=== PATIENT | female | born 1975 | race African-American/Black ===

== ENCOUNTER 2016-07-09 08:02 | Emergency (ER) | payer OTHER ==
[2016-07-09 08:11] VITALS: BMI 20.7
--- NOTE | 2016-07-09 08:26 | PDOC ---
History of Present Illness - General History Source: Patient Exam Limitations: No Limitations - History of Present Illness Initial Comments: CHIEF COMPLAINT: 40 y/o [id number] with known uterine fibroids and IUD c/o abnormal vaginal bleeding for the past 2 days. HISTORY OF PRESENT ILLNESS: The patient states her LMP was 06/21/16 and are normally every 28 days. She states 2 days ago she started having vaginal bleeding that she feels is not normal menstrual bleeding. She does also have some lower abdominal cramping. She has had to change her pad twice a day. She denies f/c, n/v/d, CP, SOB, back pain, hematuria, dysuria. She recently moved here and does not have an PARTS REPRESENTATIVE. Vital signs on arrival are within normal limits. REVIEW OF SYSTEMS: GENERAL/CONSTITUTIONAL: No fever/chills. No weakness. No weight change. HEAD, EYES, EARS, NOSE AND THROAT: No change in vision. No ear pain or discharge. No sore throat. CARDIOVASCULAR: No chest pain or shortness of breath. RESPIRATORY: No cough, wheezing, or hemoptysis. GASTROINTESTINAL: +lower abdominal pain. No nausea, vomiting, diarrhea, constipation. GENITOURINARY: No dysuria, frequency, or change in urination. +vaginal bleeding MUSCULOSKELETAL: No joint or muscle swelling or pain. No neck or back pain. SKIN: No rash or easy bruising. NEUROLOGIC: No headache, vertigo, loss of consciousness, or loss of sensation. PHYSICAL EXAM: GENERAL: The patient is awake, alert, and fully oriented, in no acute distress. She is very well appearing, ambulatory, in NAD or obvious discomfort. HEAD: Normal with no signs of trauma. ENT: Pupils equal, round and reactive to light, extraocular movements intact, sclera anicteric, conjunctiva clear. Neck supple. LUNGS: Clear to auscultation bilaterally. Normal excursion. No respiratory distress or use of accessory muscles. CV: RRR, S1/S2, no MRG. Cap refill < 2 sec. ABDOMEN: Soft, non-distended, non-tender even to deep palpation, no hepatomegaly or splenomegaly, no masses. VAGINAL: Copious red blood with large clot in the vaginal canal. Cervix cannot be visualized secondary to blood. Manual exam reveals minimal CMT. No adenexal tenderness b/l. EXTREMITIES: Normal range of motion, no edema. NEUROLOGICAL: Normal speech, normal gait. CN II-XII grossly intact. PSYCH: Normal mood, normal affect. SKIN: Warm, dry, normal turgor, no rashes or lesions noted. <Jerrica Wright - Last Filed: 07/09/16 10:36> <Bernarda Mcnair - Last Filed: 07/10/16 15:39> - General Chief Complaint: Vaginal Bleeding Stated Complaint: VAGINAL BLEEDING Time Seen by Provider: 07/09/16 08:24 Past History - Past Medical History Asthma: Yes - Psycho/Social/Smoking Cessation Hx Anxiety: No Suicidal Ideation: No Smoking History: Never smoked Hx Alcohol Use: Yes (occasionally) Drug/Substance Use Hx: No <Jerrica Wright - Last Filed: 07/09/16 10:36> <Bernarda Mcnair - Last Filed: 07/10/16 15:39> - Past Medical History Allergies/Adverse Reactions: Allergies Allergy/AdvReac Type Severity Reaction Status Date / Time No Known Allergies Allergy Verified 07/09/16 08:11 Home Medications: Ambulatory Orders NK [No Known Home Medication] 07/09/16 *Physical Exam - Vital Signs Last Vital Signs Temp Pulse Resp BP Pulse Ox 97.7 F 63 16 114/68 100 07/09/16 08:09 07/09/16 08:09 07/09/16 08:09 07/09/16 08:09 07/09/16 08:09 <Jerrica Wright - Last Filed: 07/09/16 10:36> - Vital Signs Last Vital Signs Temp Pulse Resp BP Pulse Ox 98 F 64 16 109/71 100 07/09/16 10:53 07/09/16 10:53 07/09/16 10:53 07/09/16 10:53 07/09/16 10:53 <Bernarda Mcnair - Last Filed: 07/10/16 15:39> ED Treatment Course - LABORATORY CBC & Chemistry Diagram: 07/09/16 09:10 07/09/16 09:10 <Jerrica Wright - Last Filed: 07/09/16 10:36> - LABORATORY CBC & Chemistry Diagram: 07/09/16 09:10 07/09/16 09:10 - ADDITIONAL ORDERS Additional order review: 07/09/16 08:42 Urine Culture - Final Urine - Urine Clean Catch NO GROWTH OBTAINED 07/09/16 09:10 RBC 3.83 MCV 90.2 MCHC 33.9 RDW 13.5 MPV 8.4 Neutrophils % 47.7 Lymphocytes % 33.1 Monocytes % 13.0 H Eosinophils % 4.9 H Basophils % 1.3 <Bernarda Mcnair - Last Filed: 07/10/16 15:39> Medical Decision Making - Medical Decision Making A/P: 40 y/o female with abnormal vaginal bleeding. Plan is as follows: 1. UA/culture/hcg 2. Labs 3. Transvaginal Ultrasound Transvaginal Ultrasound IMPRESSION: IUD and small uterine fibroids. Free pelvic fluids. Labs unremarkable. UA unremarkable. Patient given results. Suggested this may either be her normal menstrual period just early or bleeding fibroids. Suggested she f/u with Dr. Florence as soon as possible for follow up and return to the ER with any worsening or concerning symptoms. The patient verbalizes understanding of all instructions, has no further questions and is awaiting discharge. <Jerrica Wright - Last Filed: 07/09/16 10:36> *DC/Admit/Observation/Transfer <Jerrica Wright - Last Filed: 07/09/16 10:36> - Attestations Physician Attestion: I reviewed the case with the mid-level practitioner and agree with the mid- level practitioner's assessment, diagnosis and disposition. <Bernarda Mcnair - Last Filed: 07/10/16 15:39> Diagnosis at time of Disposition: Abnormal vaginal bleeding - Discharge Dispostion Disposition: HOME Condition at time of disposition: Good - Referrals Referrals: David Florence MD [Staff Physician] - 1 week - Patient Instructions Printed Discharge Instructions: DI for Menorrhagia Additional Instructions: Discharge Instructions: -The ultrasound of your uterus showed fibroids and a normally placed IUD -Please follow up with Dr. Florence or an PARTS REPRESENTATIVE of your choice as soon as possible for further work up -Return to the ER with any worsening or concerning symptoms - Post Discharge Activity Work/School Note: Back to Work
[2016-07-09 08:49] LABS: URINE APPEARANCE CLEAR; URINE BILIRUBIN NEGATIVE (NEGATIVE); URINE BLOOD 3+ (NEGATIVE); URINE COLOR LTYELLOW; URINE GLUCOSE (UA) NEGATIVE (NEGATIVE); URINE KETONE NEGATIVE (NEGATIVE); URINE LEUK ESTERASE NEGATIVE (NEGATIVE); URINE NITRITE NEGATIVE (NEGATIVE); URINE PROTEIN NEGATIVE (NEGATIVE); URINE UROBILINOGEN NEGATIVE E.U./dl (0.2-1.0)
[2016-07-09 08:52] LABS: URINE BACTERIA RARE /hpf (NONE SEEN); URINE MUCUS RARE; URINE RBC 2 /hpf (0-3); URINE WBC 2 /hpf (3-5)
[2016-07-09 09:19] LABS: BASOPHIL 1.3 % (0-2.0); EOSINOPHIL 4.9 % (0-4.5); MCH 30.6 pg (25.7-33.7); MCHC 33.9 g/dl (32.0-36.0); MEAN CELL VOLUME 90.2 fl (80-96); MEAN PLT VOLUME 8.4 fl (7.5-11.1); NEUTROPHILS 47.7 % (42.8-82.8); PLATELET COUNT 160 K/MM3 (134-434); RDW 13.5 % (11.6-15.6); WHITE BLOOD COUNT 4.3 K/mm3 (4.0-10.0)
[2016-07-09 09:44] LABS: ALBUMIN 3.7 g/dl (3.4-5.0); ALK PHOS 50 U/L (45-117); ANION GAP 9 (8-16); BILIRUBIN,TOTAL 1.1 mg/dL (0.2-1.0); CALCIUM 8.4 mg/dL (8.5-10.1); CO2 23 mmol/L (21-32); CREATININE 0.6 mg/dL (0.55-1.02); GLUCOSE,RANDOM 83 mg/dL (74-106); SGOT/AST 18 U/L (15-37); SGPT/ALT 24 U/L (12-78); TOT PROT 6.7 g/dl (6.4-8.2)
[2016-07-09 10:56] VITALS: BP 109/71; PULSE 64; TEMP 98
== END 2016-07-09 10:56 | disposition home or self-care (01) ==
LOC: JER 08:02
DX: N93.9 Abnormal uterine and vaginal bleeding, unspecified (principal)
CPT/HCPCS: 36415; 76830-TC; 80053; 81003; 81015; 84703; 85025; 87086; 99283-25

== ENCOUNTER 2016-09-26 08:34 | Emergency (ER) | payer OTHER ==
[2016-09-26 08:38] VITALS: TEMP 98; BMI 20.7
--- NOTE | 2016-09-26 09:11 | PDOC ---
History of Present Illness - General Chief Complaint: Pain Stated Complaint: PALPITATIONS Time Seen by Provider: 09/26/16 09:08 History Source: Patient - History of Present Illness Initial Comments: 09/26/16 11:05 41F with no pmh presents with palpitation on/off since and non- radiating epigastric pain for the past 2 days. The epigastric pain does't seem to be related to prandial state. Patient admits to be under certain amount of stress at work, works as a nurse at [employer]. 09/26/16 11:54 Past History - Past Medical History Allergies/Adverse Reactions: Allergies Allergy/AdvReac Type Severity Reaction Status Date / Time No Known Allergies Allergy Verified 09/26/16 08:34 Home Medications: Ambulatory Orders NK [No Known Home Medication] 07/09/16 Asthma: Yes GI Disorders: Yes (fibroids) - Psycho/Social/Smoking Cessation Hx Anxiety: No Suicidal Ideation: No Smoking History: Never smoked Have you smoked in the past 12 months: No Information on smoking cessation initiated: No Hx Alcohol Use: No Drug/Substance Use Hx: No Substance Use Type: None Review of Systems - Review of Systems Constitutional: No: Symptoms Reported HEENTM: No: Symptoms Reported Respiratory: No: Symptoms reported Cardiac (ROS): Yes: See HPI ABD/GI: Yes: See HPI : No: Symptoms Reported Musculoskeletal: No: Symptoms Reported Integumentary: No: Symptoms Reported All Other Systems: Reviewed and Negative *Physical Exam - Vital Signs Last Vital Signs Temp Pulse Resp BP Pulse Ox 98.0 F 74 18 123/72 100 09/26/16 08:35 09/26/16 08:35 09/26/16 08:35 09/26/16 08:35 09/26/16 08:35 - Physical Exam General Appearance: Yes: Nourished, Appropriately Dressed, Thin. No: Apparent Distress HEENT: positive: EOMI, PRINCESS Neck: positive: Trachea midline. negative: Tender Respiratory/Chest: positive: Lungs Clear, Normal Breath Sounds. negative: Chest Tender, Respiratory Distress Vascular Pulses: Dorsalis-Pedis (R): 2+, Doralis-Pedis (L): 2+ Gastrointestinal/Abdominal: positive: Normal Bowel Sounds, Flat, Soft. negative : Tender, Organomegaly Extremity: positive: Normal Capillary Refill Neurologic: positive: process control programmer II-XII NML intact, Fully Oriented, Alert, Normal Mood/ Affect ED Treatment Course - LABORATORY CBC & Chemistry Diagram: 09/26/16 09:20 09/26/16 09:20 Medical Decision Making - Medical Decision Making 09/26/16 11:54 41F with no pmh presents with palpitation on/off since and non- radiating epigastric pain for the past 2 days. EKG negative, labs, urine negative. Trops negative. Patient to be discharged. 09/26/16 12:16 09/26/16 12:17 09/26/16 12:[address] Flores if palpitations continue. *DC/Admit/Observation/Transfer Diagnosis at time of Disposition: Intermittent palpitations - Discharge Dispostion Disposition: HOME Admit: No - Referrals Referrals: Arsh Flores MD [Staff Physician] - - Patient Instructions Printed Discharge Instructions: DI for Palpitations Additional Instructions: Follow up with Dr. Flores if palpitations continue.
[2016-09-26 09:53] LABS: URINE APPEARANCE SLCLOUDY; URINE BILIRUBIN NEGATIVE (NEGATIVE); URINE BLOOD 3+ (NEGATIVE); URINE COLOR YELLOW; URINE GLUCOSE (UA) NEGATIVE (NEGATIVE); URINE KETONE NEGATIVE (NEGATIVE); URINE LEUK ESTERASE NEGATIVE (NEGATIVE); URINE NITRITE NEGATIVE (NEGATIVE); URINE PROTEIN NEGATIVE (NEGATIVE); URINE UROBILINOGEN NEGATIVE mg/dL (0.2-1.0)
[2016-09-26 10:00] LABS: BASOPHIL 0.9 % (0-2.0); EOSINOPHIL 5.8 % (0-4.5); MCH 30.8 pg (25.7-33.7); MCHC 34.1 g/dl (32.0-36.0); MEAN CELL VOLUME 90.3 fl (80-96); MEAN PLT VOLUME 9.1 fl (7.5-11.1); NEUTROPHILS 45.4 % (42.8-82.8); PLATELET COUNT 201 K/MM3 (134-434); RDW 13.7 % (11.6-15.6); WHITE BLOOD COUNT 4.8 K/mm3 (4.0-10.0)
[2016-09-26 10:02] LABS: URINE MUCUS MODERATE; URINE RBC 202 /hpf (0-3); URINE WBC 15 /hpf (3-5)
[2016-09-26 10:20] LABS: ALBUMIN 4.3 g/dl (3.4-5.0); ANION GAP 7 (8-16); CALCIUM 9.1 mg/dL (8.5-10.1); CO2 27 mmol/L (21-32); CREATININE 0.8 mg/dL (0.55-1.02); GLUCOSE,RANDOM 84 mg/dL (74-106); SGOT/AST 17 U/L (15-37); SGPT/ALT 22 U/L (12-78)
[2016-09-26 10:30] LABS: ALK PHOS 51 U/L (45-117); BILIRUBIN,TOTAL 1.3 mg/dL (0.2-1.0); THYROID STIMULATING HORMONE 1.03 uIU/ml (0.358-3.74); TOT PROT 7.7 g/dl (6.4-8.2)
--- NOTE | 2016-09-26 10:32 | PDOC ---
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 feels under stress recently. no caffeine, no new medications. drinking vinegar. not eating and drinking as much. no f/c no leg swelling. no h/o pe or dvt. no other complaints. no family h/o premature cAD, only brother with h/o rheumatic heart disease. ( valve replacement) - Physicial Exam PE: 09/26/16 11:56 awake alert lungs clear heart rrr no mrg.a bd soft nt nd. leg no edema no calf tenderness. pulses symmetric. nuero alert oriented x 3 - Medical Decision Making 09/26/16 11:57 plan r/o electrolyte abnormality, thyroid abnormality, r/o infection, anemia. if normal consider dc outpt cardiology followup. low risk for heart disease. minimal risk factors. Heart Score/ECG Review #1 General ECG Interpretation: Sinus Rhythm, Normal Rate (62), Normal Intervals, No acute ischemic changes
[2016-09-26 12:05] LABS: CPK 517 IU/L (26-192); TROPONIN I < 0.02 ng/ml (0.00-0.05)
[2016-09-26 13:02] VITALS: BP 122/65; PULSE 68
--- NOTE | 2016-09-26 13:37 | EKG ---
Test Reason : Blood Pressure : / mmHG Vent. Rate : 062 BPM Atrial Rate : 062 BPM P-R Int : 154 ms QRS Dur : 074 ms QT Int : 406 ms P-R-T Axes : 069 048 041 degrees QTc Int : 412 ms NORMAL SINUS RHYTHM NORMAL ECG NO PREVIOUS ECGS AVAILABLE Confirmed by ROSE MARY TRIPLETT MD ([id number]) on 09/26/2016 1:36:39 PM Referred By: Confirmed By:ROSE MARY TRIPLETT MD
== END 2016-09-26 13:03 | disposition home or self-care (01) ==
LOC: JER 08:34
DX: R00.2 Palpitations (principal); Z87.09 Personal history of other diseases of the respiratory system
CPT/HCPCS: 36415; 80053; 81003; 81015; 82553; 84443; 84484; 84703; 85025; 93005; 93010; 99284-25

== ENCOUNTER 2017-12-20 12:58 | Emergency (ER) | payer OTHER ==
[2017-12-20 13:21] VITALS: BP 105/57; PULSE 69; TEMP 98.2; BMI 21.0
--- NOTE | 2017-12-20 15:08 | PDOC ---
History of Present Illness - General Chief Complaint: Pain, Acute Stated Complaint: HEADACHE Time Seen by Provider: 12/20/17 14:59 - History of Present Illness Initial Comments: 12/20/17 15:06 42-year-old female without comorbidities presents for evaluation of atraumatic onset of neck pain 2 weeks. She describes a feeling of crepitation with flexion and extension movements not rotation no radicular symptoms no systemic symptoms Past History - Past Medical History Allergies/Adverse Reactions: Allergies Allergy/AdvReac Type Severity Reaction Status Date / Time No Known Allergies Allergy Verified 09/26/16 08:34 Home Medications: Ambulatory Orders NK [No Known Home Medication] 07/09/16 Asthma: Yes COPD: No GI Disorders: Yes (fibroids) - Suicide/Smoking/Psychosocial Hx Smoking History: Never smoked Have you smoked in the past 12 months: No Hx Alcohol Use: No Drug/Substance Use Hx: No Substance Use Type: None Review of Systems - Review of Systems Musculoskeletal: Yes: Neck Pain *Physical Exam - Vital Signs Last Vital Signs Temp Pulse Resp BP Pulse Ox 98.2 F 69 16 105/57 L 99 12/20/17 13:17 12/20/17 13:17 12/20/17 13:17 12/20/17 13:17 12/20/17 13:17 - Physical Exam Comments: 12/20/17 15:06 HEAD: NC/AT EYES: Conjuntiva clear EOMI PERRL Ears: Canals and TM's normal NOSE: No d/c THROAT: Moist mucous membrances, oral pharanx clear, uvula midline NECK: Supple without adenopathy CARDIAC: S1 S2 LUNGS: CTA Full and Equal breath sounds ABDOMEN: Soft NT ND MS: Full ROM in all joints without edema NEUROLOGIC: No gross sensory or motor deficits, NVID SKIN: Normal color and temperature no lesions or rashes Cervical spine skin color and temperature are normal range of motion is full without crepitation. Is mild left-sided paracervical musculature spasm. No midline tenderness. 5 out of 5 strength in bilateral upper extremities without gross sensorimotor deficits and a negative Spurling maneuver. Medical Decision Making - Medical Decision Making 12/20/17 15:07 Cervical strain, I've offered her Flexeril which she has refused. I will give her follow-up with spine surgery *DC/Admit/Observation/Transfer Diagnosis at time of Disposition: Cervical strain - Discharge Dispostion Disposition: HOME Condition at time of disposition: Stable Decision to Admit order: No - Referrals Referrals: Ishan Bueno MD [Staff Physician] - - Patient Instructions Printed Discharge Instructions: DI for Cervical Muscle Strain Additional Instructions: Return to the emergency room should symptoms worsen or go unresolved. Please follow-up with orthopedic spine surgery for further evaluation and treatment options. - Post Discharge Activity
== END 2017-12-20 15:15 | disposition home or self-care (01) ==
LOC: JERFT 12:58
DX: S16.1XXA Strain of muscle, fascia and tendon at neck level, initial encounter (principal); X58.XXXA Exposure to other specified factors, initial encounter; Y93.89 Activity, other specified; Y92.89 Other specified places as the place of occurrence of the external cause; Y99.8 Other external cause status; Z86.2 Personal history of diseases of the blood and blood-forming organs and certain disorders involving the immune mechanism; Z87.09 Personal history of other diseases of the respiratory system
CPT/HCPCS: 99281-25